=== PATIENT | male | born 1950 | race Caucasian/White ===

== ENCOUNTER 2018-01-17 20:52 | Emergency (ER) | payer MEDICARE, SELFPAY ==
[2018-01-17 20:53] VITALS: BP 119/84; PULSE 99; RESP 14; TEMP 36.5; O2SAT 96; BMI 25.0
--- NOTE | 2018-01-17 20:53 | ED.RN ---
NO OLD EKG'S IN MUSE
--- NOTE | 2018-01-17 21:21 | RAD_ITS ---
XR Chest 1 View INDICATION: Pt. states syncope COMPARISON: None TECHNIQUE: Portable chest x-ray FINDINGS: The heart size and pulmonary vascularity are within normal limits. Lungs are hyperinflated with coarsened interstitial markings. No evidence of focal airspace consolidation or pleural effusion. Osseous structures are unremarkable. RAD/Chest 1 View (Portable) IMPRESSION: COPD/emphysema. No focal infiltrate. at 2150 Reported and signed by: Julieth Padilla MD Electronically Signed: Julieth Padilla MD at 20:48 EDT Tel , Service support ,
--- NOTE | 2018-01-17 21:21 | EKG12_ITS ---
Test Reason : SYNCOPE/DIZZINESS Blood Pressure : / mmHG Vent. Rate : 097 BPM Atrial Rate : 097 BPM P-R Int : 152 ms QRS Dur : 096 ms QT Int : 372 ms P-R-T Axes : 084 092 078 degrees QTc Int : 472 ms Normal sinus rhythm Normal ECG Confirmed by LOURDES MENESES, AMRICHUY ([id number]), market editor PATRIC DUNCAN ([id number] on 01/21/2018 1:41:09 PM Referred By: MAURIZIO BURNETT Confirmed By:MARICHUY FREED MD
--- NOTE | 2018-01-17 21:22 | CT_ITS ---
CT Head or Brain W/O Contrast INDICATION: SYNCOPE COMPARISON: None TECHNIQUE: Noncontrast axial CT examination of the brain. Radiation dose optimization applied. FINDINGS: The ventricular system is normal in size and symmetric. The cortical sulci, sylvian fissures, and basal cisterns are well seen. The corley-white matter junction is distinct. There is no evidence of acute intracranial hemorrhage, mass effect, midline shift, or abnormal extra-axial collection. The calvarium is intact and the visualized paranasal sinuses and mastoid air cells are clear. CT/Brain/Head without Contrast IMPRESSION: No evidence of acute intracranial abnormality by noncontrast CT. at 2242 Reported and signed by: Julieth Padilla MD Electronically Signed: Julieth Padilla MD at 21:41 EDT Tel , Service support ,
[2018-01-17 21:29] LABS: Absolute Lymphocyte Count 3.26 X10^3/ul (0.83-4.51); Basophil# 0.02 X10^3/uL; Basophil% 0.2 % (0-1); Eosinophil# 0.43 X10^3/uL; Eosinophils% 4.5 % (0-5); Hematocrit 47.3 % (40-54); Lymphocyte # 3.26 X10^3/ul (4.0); Lymphocyte % 34.2 % (19-41); Mean Corp Hgb Conc 33.8 g/gl (32-36); Mean Corpuscular Hgb 32.8 pg (27.0-32.0); Mean Corpuscular Volume 96.9 fL (80-94); Mean Platelet Vol. 11.4 fl (6.2-12.0); Monocyte# 0.78 X10^3/uL; Monocyte% 8.2 % (0-10); Neutrophil # 5.03 X10^3/uL (2.7-7.7); Neutrophil % 52.7 % (47-70); Platelet Count 243 K/mm3 (150-450); RBC Distribution Width CV 13.2 % (11.6-14.6); RBC Distribution Width SD 46.7 fl (35.1-43.9); Red Blood Count 4.88 M/mm3 (4.6-6.2); White Blood Count 9.5 K/mm3 (4.4-11.0)
[2018-01-17 21:31] LABS: POSITIVE COUNT NO; POSITIVE DIFFERENTIAL NO; POSITIVE MORPHOLOGY NO
[2018-01-17 21:51] LABS: Anion Gap 9 (5-15); BUN 14 mg/dL (7-18); BUN/Creat Ratio 13.6 RATIO (10-20); Calcium,Total 8.7 mg/dL (8.5-10.1); Chloride 104 mmol/L (98-107); Creatinine, Serum 1.03 mg/dL (0.70-1.30); EST Glomerular Filtration Rate 77 mL/min (>60); Est Glom Filt Rate - Afr Amer 93 mL/min (>60); Estimated Creatinine Clearance 84.32 ml/min; Glucose 116 mg/dL (74-106); Potassium 3.4 mmol/L (3.5-5.1); Sodium Level 139 mmol/L (136-145)
[2018-01-17 22:30] VITALS: BP 121/86; PULSE 88; RESP 18; O2SAT 94
--- NOTE | 2018-01-17 23:12 | ED.VISSUMM ---
- ER Visit Summary Date of Service: 01/17/18 Chief Complaint: Syncope History of Present Illness: The patient is a 67 M presenting for evaluation secondary to syncope. Patient states that he was finishing up his dinner, was still eating, and had a sudden feeling where he felt faint, and then he did pass out. Patient denies that he had any sort of chest pain or heart palpitations or shortness of breath preceding this. He has never had any prior similar symptoms. He denies any symptoms currently. Family states that they did witness this, there was no seizure-like activity no bowel or bladder incontinence. Patient did apparently hit his head, he is not on any sort of anticoagulants. Cardiac risk factors are only hypertension and tobacco use. Physical Examination: Primary survey: Airway is patent, breath sounds equal bilateral, central peripheral pulses 2+ and symmetric, GCS 15 out of 15. Vitals within normal limits. Secondary survey: General: Well-nourished well-developed no acute distress Head: Normocephalic atraumatic Eyes: PERRLA, EOMI ENT: TMs clear no hemotympanum no drainage Neck: Nontender full range of motion, no step-offs noted Heart: Regular rate and rhythm no murmurs Lungs: Respirations nondistressed, lung sounds clear to auscultation bilaterally, chest nontender, normal chest excursion bilaterally Abdomen: Soft nontender nondistended normal bowel sounds no palpable abdominal masses Back: Nontender no step-offs noted Extremities: Nontender: Active full range of motion ?4 Skin: Normal color no trauma Neuro: Alert and oriented ?4, GCS 15 out of 15, no lateralizing neurological deficits. Test Results: EKG shows sinus rhythm at [address] segments normal T waves. Chest x-ray shows no acute pathology per radiology, CT brain unremarkable per radiology, CBC chemistry and troponin also unremarkable. Emergency Department Course and Treatment: Patient presented for evaluation secondary to a syncopal episode. Patient does not have any DVT or PE risk factors. His workup was negative as noted above. Patient is [place] syncope negative, I do not believe that he requires admission at this point. Patient was counseled on signs and symptoms of a vagal event and was given signs and symptoms for which return. Patient and family were comfortable with this and he was discharged. Disposition: Discharge Impression: 1. Vasovagal syncope This note was generated with [employer] dictation software. It may contain incorrect words, spelling, and punctuation that were not noted in review of the chart prior to signing ED Disposition - Plan for ED Patient: Chief Complaint: Syncope Diagnosis: Vasovagal syncope Instructions: ED Syncope Vasovagal Referrals: Ramirez Gould [Primary Care Provider] - As Needed
[2018-01-17 23:40] VITALS: BP 118/92; PULSE 99; RESP 17; O2SAT 98
--- NOTE | 2018-01-17 23:41 | ED.RN ---
IV DC'ED, CATHETER INTACT, SMALL GAUZE DRESSING PLACED. DISCHARGE INSTRUCTIONS GIVEN TO AND REVIEWED WITH PATIENT, PATIENT DENIES QUESTIONS OR CONCERNS AND VOICES UNDERSTANDING OF DISCHARGE INSTRUCTIONS. PT AMBULATE OUT OF ROOM WITHOUT DIFFICULTY.
== END 2018-01-17 23:41 | disposition home or self-care (01) ==
PROVIDERS: Emergency Provider Emergency Medicine; Family Provider Family Medicine; PCP Family Medicine
DX: R55 Syncope and collapse (principal); I10 Essential (primary) hypertension; Z72.0 Tobacco use
CPT/HCPCS: 70450; 71045; 80048; 84484; 85025; 93005; 99285; A4216